=== PATIENT | male | born 1990 | race Caucasian/White ===

== ENCOUNTER 2018-10-10 11:38 | Emergency (ER) | payer SELFPAY ==
[2018-10-10 11:59] VITALS: BP 117/61; PULSE 91; RESP 18; TEMP 36.5; O2SAT 98
--- NOTE | 2018-10-10 12:48 | ED.GENADUL_ITS ---
Discharge Plan Disposition Patient Disposition: HOME Condition: Stable Discharge Details Chief Complaint: EyeProblem Clinical Impression: Eye foreign body Primary Care Provider: None,None ED Provider: Sonja Waldron Discharge Instructions Instructions: Eye Foreign Body (ED) Additional Instructions: Please return to the emergency department if you develop any new or worsening symptoms or if you become otherwise concerned. It is extremely important that you make an appointment to be seen within the next 1-2 weeks by your primary care doctor Stand Alone Forms: Work Release Discharge Data Discharge Date/Time-TO BE ENTERED AT DEPARTURE: 10/10/18 13:40 Medical Decision Making Dickson Vines is a 27 y/o man without reported h/o major medical problems presenting to the emergency department c/o foreign body sensation to right eye for three days after working with wood, no eye pain or visual changes. On exam Pt is very well and non-toxic appearing. 2mm FB c/w wood removed from right eye with immediate resolution of FB sensation, Pt reporting that he is now asymptomatic. Exam/hx not c/w endopthalmitis, corneal abrasion/ulceration, glaucoma, other vision threatening condition. Given length of time FB in place and conjunctival injection, plan to treat with erythromycin for possible conjunctivitis. Tetanus updated. I had a lengthy discussion with the Pt re: RTED precautions and importance of outpt f/u with his PCP. Pt verbalizes understanding of the plan. Medical Records Medical records reviewed: Yes I reviewed the patient's medical records. HPI General Mode of arrival: ambulatory . Date/Time Provider Initiated Documentation: 10/10/18 12:12 . Limitations to Documentation: no limitations . Information obtained by: patient, RN notes reviewed and old records reviewed . HPI Narrative: Dickson Vines is a 27 y/o man without reported h/o major medical problems presenting to the emergency department with FB to right eye. Pt reports that 3 days ago he was working with wood when he felt a piece of wood fly into his right eye. Pt removed a one small piece of wood from his eye, but feels that there is another. He reports that he has seen another piece of wood occasionally in that eye since onset of symptoms, but has been unable to get it out. He reports foreign body sensation to right eye but denies any eye pain. No change in vision. No other pain. No fever, no vomiting. Feels otherwise in his usual state of health. No other injuries. Has been eating and drinking as usual. Related Data Allergies Allergy/AdvReac Type Severity Reaction Status Date / Time No Known Allergies Allergy Unverified 10/10/18 12:04 General Stated Complaint: EyeProblem ADRIANNE: 4 Review of Systems Review of Systems Constitutional: denies fevers Eyes: denies eye pain, visual changes, reports FB sensation to right eye ENT: denies facial pain, dental pain, sore throat Cardiovascular: denies chest pain Respiratory: denies SOB, cough GI: denies abdominal pain, vomiting, diarrhea : denies flank pain MSK: denies back pain, neck pain, arthralgias, myalgias Skin: denies rash Neuro: denies headaches [facility] Social History Smoking/Tobacco Use Status: Never Exam Narrative Exam Narrative: Constitutional: well and [id number], pleasant, conversing normally HENT: head atraumatic, normocephalic normal inspection, mucous membranes moist Eyes: conjunctiva injected on right and normal on left, no sceral icterus, PERRLA, 3mm b/l, EOMI. Right eylids everted and swept, 2mm FB removed from under right upper eyelid. Fluorescein staining of right eye shows no uptake Neck: no stridor, normal ROM, trachea midline Resp: normal work of breathing, LCTAB Cardio: normal rate, normal rhythm, no murmur appreciated Skin: warm, dry, normal color, no rash Neuro: alert, not altered, grossly non-focal, normal tone, normal gait Psych: normal mood, normal affect, normal behavior Course Vital Signs Temperature 36.5 C 10/10/18 11:59 Pulse 91 H 10/10/18 11:59 Respiratory Rate 18 10/10/18 11:59 Blood Pressure 117/61 10/10/18 11:59 Pulse Oximetry 98 10/10/18 11:59 Temperature 36.5 C 10/10/18 11:59 Temperature Source Skin 10/10/18 11:59 Pulse 91 H 10/10/18 11:59 Respiratory Rate 18 10/10/18 11:59 Respiratory Effort 10/10/18 12:03 Blood Pressure 117/61 10/10/18 11:59 Blood Pressure Position Sitting 10/10/18 11:59 Pulse Oximetry 98 10/10/18 11:59 Oxygen Delivery Method Room Air 10/10/18 11:59 Oxygen Flow Rate 0 10/10/18 11:59 Pain Level 6 10/10/18 11:59
[2018-10-10] MEDS: Fluorescein STRIPS 100/BOX 1 MG (13:10)
[2018-10-10] MEDS: Tetracaine 0.5% 4 ML BTL (13:10)
[2018-10-10] MEDS: Erythromycin Ophth Oint 3.5 GM TUBE OD (13:41)
[2018-10-10 13:43] VITALS: BP 117/61; PULSE 81; RESP 18; TEMP 36.5; O2SAT 98
== END 2018-10-10 13:40 | disposition home or self-care (01) ==
PROVIDERS: Emergency Provider Student in an Organized Health Care Education/Training Program
DX: T15.91XA Foreign body on external eye, part unspecified, right eye, initial encounter (principal); X58.XXXA Exposure to other specified factors, initial encounter
CPT/HCPCS: 90471; 99282

== ENCOUNTER 2019-01-01 15:39 | Emergency (ER) | payer SELFPAY ==
[2019-01-01 15:47] VITALS: BP 100/72; PULSE 94; RESP 16; TEMP 37.3; O2SAT 97
--- NOTE | 2019-01-01 16:10 | W.ED.GENAD ---
Discharge Plan Disposition Patient Disposition: HOME Condition: Stable Discharge Details Chief Complaint: Cellulitis Clinical Impression: Folliculitis Primary Care Provider: None,None ED Provider: Isidoro Henriquez Home Meds and New Rx's Prescriptions: No Action triamcinolone acetonide 0.1 % cream 1 applic TP BID Qty: 15 RF: 0 Discharge Instructions Instructions: Folliculitis (ED) Additional Instructions: Please use provided cream as directed and return to emergency department for any significant worsening of symptoms or any further concerns you may have. Otherwise if not improving over the next week please follow-up with primary care provider for reassess. Referrals: Primary Care Provider [Outside] (As needed for reassessment) Discharge Data Discharge Date/Time-TO BE ENTERED AT DEPARTURE: 01/01/19 16:23 Medical Decision Making Patient presenting to the emergency department for chief complaint of rash and irritation to left upper thigh. Patient denies any other injury, trauma, or medical complaints. Physical exam shows erythematous papules to left upper thigh with slight nonspecific erythema surrounding the area. Physical exam findings are consistent with folliculitis. Patient does state that symptoms do seem to have improved slightly over the past 24 hours but not completely. Patient states that this is been going on for a total time of 1 week. Patient placed up on clindamycin ointment to use twice daily for 1 week or until rash clears. Patient states that he does not have a primary care provider so he is placed upon care management list to help with a primary care provider which patient states he would appreciate. Patient just to follow-up with PCP if not improving. Patient states clear understanding to return to emergency department for any new or significant worsening of symptoms. After discussion of diagnosis and plan of care patient is no further needs, questions, or concerns and states clear understanding to return to the emergency department for any worsening symptoms. HPI General Mode of arrival: ambulatory. Date/Time Provider Initiated Documentation: 01/01/19 15:48. Limitations to Documentation: no limitations. Information obtained by: patient and RN notes reviewed. History of Present Illness 28 year old M presents to the emergency department with the chief complaint of leg rash, described as mild, with intensity rated at 3. Quality is described as burning, and is localized to the lower extremity. Patient started experiencing this week(s) (1) and it has been constant. No relieving factors improve symptom(s), No exacerbating factors reported . Patient notes no other symptoms.. Related Data Home Medications Medication Instructions Recorded Confirmed triamcinolone acetonide 0.1 % 1 applic TP BID #15 gm 01/10/19 01/10/19 topical cream Previous Rx's Medication Instructions Recorded triamcinolone acetonide 0.1 % 1 applic TP BID #15 gm 01/10/19 topical cream Allergies Allergy/AdvReac Type Severity Reaction Status Date / Time morphine Allergy Unverified 01/01/19 15:50 General Stated Complaint: Cellulitis ADRIANNE: 4 Review of Systems Constitutional Denies body ache(s), Denies chills and Denies fever(s) Cardiovascular Denies chest pain and Denies dyspnea Respiratory Denies dyspnea Gastrointestinal Denies abdominal pain, Denies nausea and Denies vomiting Integumentary/Breasts Reports rash [facility] Social History Smoking/Tobacco Use Status: Never Drug use: Never Do you feel safe in your relationship?: Yes Exam Const General: cooperative, no acute distress and not ill appearing Orientation: alert, awake and oriented x3 HENMT Mouth: moist mucous membranes Resp Effort & Inspection: normal respiratory effort, able to speak in complete sentences and no respiratory distress Cardio Rate: regular rate Rhythm: regular rhythm Skin General skin exam: erythema (to left inner thigh with papules and small white pustules at folicules) Course Vital Signs Temperature 37.3 C 01/01/19 15:47 Pulse 94 H 01/01/19 15:47 Respiratory Rate 16 01/01/19 15:47 Blood Pressure 100/72 01/01/19 15:47 Pulse Oximetry 97 01/01/19 15:47 Temperature 37.3 C 01/01/19 15:47 Temperature Source Skin 01/01/19 15:47 Pulse 94 H 01/01/19 15:47 Respiratory Rate 16 01/01/19 15:47 Respiratory Effort Non-Labored 01/01/19 15:47 Blood Pressure 100/72 01/01/19 15:47 Blood Pressure Position Sitting 01/01/19 15:47 Pulse Oximetry 97 01/01/19 15:47 Oxygen Delivery Method Room Air 01/01/19 15:47 Oxygen Flow Rate 0 01/01/19 15:47 Pain Level 3 01/01/19 15:47
--- NOTE | 2019-01-02 08:07 | PDOC.ERCMPRO ---
Care Management Progress Note 01/02-Beltran CARMONA requested assistance with Dickson having a PCP. Patient seen in ED for folliculitis. No ED f/u needed at this time. Dr. Leong nondestructive tester. Referral faxed to [facility] this am.
== END 2019-01-01 16:23 | disposition home or self-care (01) ==
PROVIDERS: Emergency Provider Nurse Practitioner Family
DX: L73.9 Follicular disorder, unspecified (principal)
CPT/HCPCS: 99283

== ENCOUNTER 2022-12-04 10:45 | Emergency (ER) | payer SELFPAY ==
[2022-12-04 10:50] VITALS: PULSE 53; RESP 18; TEMP 36.9; O2SAT 95
[2022-12-04 10:52] VITALS: BP 124/59
--- NOTE | 2022-12-04 11:08 | ED.GENADUL_ITS ---
Discharge Plan Disposition Patient Disposition: Home Discharge Details Clinical Impression: Impacted cerumen of right ear Primary Care Provider: None,None ED Provider: Liv Haq Home Meds and New Rx's Prescriptions: No Action No Known Home Meds Discharge Instructions Instructions: Earache (ED) Additional Instructions: You did have some impacted earwax today. This was removed with irrigation. You do have some redness noted. If this does not improve in the next few days or gets worse you may be needing to be seen again in urgent care or your primary care provider for antibiotics. Please take Tylenol or Ibuprofen with food every 4-6 hours as needed for pain and swelling. Follow up with primary care provider in 3-5 days. Return to ED sooner if any wo rsening or concerns. Increase oral fluids. Discharge Data Discharge Date/Time-TO BE ENTERED AT DEPARTURE: 12/04/22 11:47 Medical Decision Making 32-year-old male presents to the ER with fullness in his right ear he reports that he uses earplugs and has had a history of impacted cerumen. He attempted to remove the cerumen this morning with hydrogen peroxide and a bulb syringe which was unsuccessful. He does present with fullness. No other complaints or associated symptoms at this time. Left tympanic membrane within normal limits, unable to visualize the right due to cerumen impaction. After irrigation by staffing rn I was able to visualize the right tympanic membrane there was some slight redness to the external ear canal and slight redness to the right TM. No bulging no loss of landmarks. I do suspect this is irritation from the irrigation. I did however instruct him to be seen again at urgent care PCP or return to the ER for any continued pain after few days. He verbalizes understanding. Patient felt markedly improved prior to discharge. This text was generated using [employer] dictation system, please disregard any oddities of phrase or misspellings. HPI General Mode of arrival: ambulatory . Date/Time Provider Initiated Documentation: 12/04/22 10:47 . Limitations to Documentation: no limitations . Information obtained by: patient, RN notes reviewed and old records reviewed . HPI Narrative: 32-year-old male presents to the ER with fullness in his right ear he reports that he uses earplugs and has had a history of impacted cerumen. He attempted to remove the cerumen this morning with hydrogen peroxide and a bulb syringe which was unsuccessful. He does present with fullness. No other complaints or associated symptoms at this time. Left tympanic membrane within normal limits, unable to visualize the right due to cerumen impaction. Related Data Home Medications Medication Instructions Recorded Confirmed Unknown [No Known Home Meds] 12/04/22 12/04/22 Allergies Allergy/AdvReac Type Severity Reaction Status Date / Time morphine Allergy Unverified 12/04/22 10:52 General Stated Complaint: EarProblem ADRIANNE: 4 Review of Systems ENT Ears, Nose, Mouth, and Throat: Reports as per [facility] All Active Problems (Updated 12/04/22 @ 11:45 by Liv Haq NP) Impacted cerumen of right ear (Acute) Social History Smoking/Tobacco Use Status: Never Smoking risk assessment performed?: Yes Alcohol Intake: current Alcohol Intake frequency: holidays/special occasions only Drug use: Never Do you feel safe at home: Yes Do you feel safe in your relationship?: Yes Exam HENMT Ears: TM normal on the left and unable to visualize TM on the right Course Vital Signs Vital signs: Vital Signs Temperature 36.9 C 12/04/22 10:50 Pulse 53 L 12/04/22 10:50 Respiratory Rate 18 12/04/22 10:50 Pulse Oximetry 95 12/04/22 10:50 Temperature 36.9 C 12/04/22 10:50 Temperature Source Oral 12/04/22 10:50 Pulse 53 L 12/04/22 10:50 Respiratory Rate 18 12/04/22 10:50 Respiratory Effort Normal, Non-Labored 12/04/22 10:51 Blood Pressure 124/59 L 12/04/22 10:52 Pulse Oximetry 95 12/04/22 10:50 Oxygen Delivery Method Room Air 12/04/22 10:50 Oxygen Flow Rate 0 12/04/22 10:50 PAWSS Have you Been Recently Intoxicated or Drunk Within the Last 30 days?: No Have you Ever Experienced Previous Episodes of Alcohol Withdrawal?: No Have you ever Experienced Withdrawal Seizures?: No Have you ever Experienced Delirium Tremens(DT)s?: No Have you ever undergone Alcohol Rehabilitation Treatment (i.e, inpt ot outpatient treatment programs)?: No Have you ever Experienced Blackouts?: No Have you ever Combined Alcohol with other Downers within the last 90 days?: No Have you ever Combined Alcohol with any other Substance of Abuse during the last 90 days?: No Positive Blood Alcohol level on Presentation? [PCS.BAL]: No Evidence of Increased Autonomic Activity (i.e. HR>120, tremor, sweating, agita tion, nausea)?: No Result: 0
== END 2022-12-04 11:47 | disposition home or self-care (01) ==
PROVIDERS: Emergency Provider Registered Nurse Emergency
DX: H61.21 Impacted cerumen, right ear (principal)
CPT/HCPCS: 99282; 99283